=== PATIENT | male | born 1985 | race Caucasian/White ===

== ENCOUNTER 2019-07-22 09:21 | Emergency (ER) | payer OTHER ==
[~2019-07-22] VITALS: Ht 177.8 cm; Wt 142.0 kg
[2019-07-22 09:50] LABS: BASO # 0.1 10^3/uL (0.0-0.2); EOS # 0.2 10^3/uL (0.0-0.5); EOS % 1.7 % (0.0-3.0); HEMATOCRIT 45.1 % (42.0-52.0); HEMOGLOBIN 15.5 g/dl (13.5-17.5); LYMPH # 2.9 10^3/uL (1.5-5.0); LYMPH % 30.8 % (24.0-44.0); MEAN CORPUSCULAR HEMOGLOBIN 31.2 pg (27.0-33.0); MEAN CORPUSCULAR HGB CONC 34.4 g/dl (32.0-36.5); MEAN CORPUSCULAR VOLUME 90.7 fl (80.0-96.0); MONO # 0.7 10^3/uL (0.0-0.8); NEUTROPHILS # 5.4 10^3/uL (1.5-8.5); NEUTROPHILS % 57.9 % (36.0-66.0); PLATELET COUNT, AUTOMATED 289 10^3/uL (150-450); RED BLOOD COUNT 4.97 10^6/uL (4.30-6.10); WHITE BLOOD COUNT 9.3 10^3/uL (4.0-10.0)
--- NOTE | 2019-07-22 10:00 | REP ---
Portable chest, 09:40 a.m., single AP view with the the patient sitting: Comparison is the PA and lateral chest of 02/25/2018. The lung noguera are clear. The cardiac size is normal. The fay, mediastinum, and skeletal structures are unremarkable. Impression: Negative portable chest. There is no interval change. Electronically Signed by Ashok Lerma MD 07/22/2019 09:52 A
[2019-07-22 11:05] LABS: BLOOD UREA NITROGEN 12 MG/DL (7-18); CALCIUM LEVEL 8.8 MG/DL (8.5-10.1); CARBON DIOXIDE LEVEL 26 MEQ/L (21-32); CHLORIDE LEVEL 106 MEQ/L (98-107); CK-MB VALUE MASS 1.7 NG/ML (<3.6); CPK CREATINE PHOSPHOKINASE 152 U/L (39-308); CREATININE FOR GFR 1.14 MG/DL (0.70-1.30); GLOMERULAR FILTRATION RATE > 60.0 (>60); GLUCOSE, FASTING 102 MG/DL (70-100); MB/CK RELATIVE INDEX 1.12 (< OR =4); SODIUM LEVEL 139 MEQ/L (136-145); TROPONIN I < 0.02 NG/ML (< 0.10)
[2019-07-22] MEDS ORDERED: ISOVUE-370 76% 100ML VIAL (Q9967) As Ordered ONE ×2 (11:18→11:58)
--- NOTE | 2019-07-22 12:29 | REP ---
CT of the chest with IV contrast, CT pulmonary artery angiography: Comparison is the portable plain film study earlier today. The pulmonary arteries are marginally well opacified. The thoracic aorta is more densely opacified and the pulmonary arteries. There are no emboli in the pulmonary trunk or central pulmonary arteries. There are no emboli in the pulmonary lobe or segment branches. There are no infiltrates or pleural effusions. There are no lung masses or nodules. There is no mediastinal or hilar lymph node enlargement. There is no axillary lymph node enlargement. The thoracic aorta is unremarkable. Cardiac size is normal. There is no pericardial effusion. The visualized upper abdominal contents are unremarkable. Impression: No pulmonary emboli are identified. There are no infiltrates, pleural effusions, masses, nodules or adenopathy. Otherwise, negative CT study of the chest. Electronically Signed by Ashok Lerma MD 07/22/2019 12:20 P
[2019-07-22 14:13] VITALS: BP 115/59
[2019-07-22 14:20] LABS: CK-MB VALUE MASS < 1.0 NG/ML (<3.6); CPK CREATINE PHOSPHOKINASE 111 U/L (39-308); TROPONIN I < 0.02 NG/ML (< 0.10)
--- NOTE | 2019-07-23 20:43 | ECGEPIP ---
[facility] - ED Test Date: 2019-07-22 Pat Name: WESLY JONES Department: Room: - Gender: Male [employer] Photographer: julio césar : 1985 Requested By: Arnoldo Alejandro Order Number: [id number] Reading MD: Rosalie Deng Measurements Intervals [place] Rate: 81 P: 31 MN: 144 QRS: 40 QRSD: 105 T: 21 QT: 356 QTc: 414 Interpretive Statements SINUS RHYTHM POSSIBLE INFERIOR MYOCARDIAL INFARCTION, OF INDETERMINATE AGE WITH POSTERIOR EXTENSION NO PRIOR Electronically Signed on 07-23-2019 20:43:10 EDT by Rosalie Deng
== END 2019-07-22 14:55 | disposition home or self-care (01) ==
LOC: M ED 09:21
DX: R07.89 Other chest pain (principal); R07.1 Chest pain on breathing; E66.9 Obesity, unspecified
CPT/HCPCS: 36415; 71045; 71275; 80048; 82550; 82553; 84484; 85025; 93005; 93041; 94760; 99285; Q9967

== ENCOUNTER 2020-08-25 20:31 | Emergency (ER) | payer OTHER ==
[~2020-08-25] VITALS: Ht 177.8 cm; Wt 134.1 kg
--- NOTE | 2020-08-25 21:34 | REPVR ---
PROCEDURE INFORMATION: Exam: XR Right Knee Exam date and time: 08/25/2020 9:07 PM Age: 35 years old Clinical indication: Pain; Knee; Right; Additional info: Injury with pain TECHNIQUE: Imaging protocol: XR Right knee. Views: 4 or more views. COMPARISON: No relevant prior studies available. FINDINGS: Bones/joints: Normal. Soft tissues: Normal. IMPRESSION: No acute findings. Electronically signed by: Lew Sheriff On 08/25/2020 21:34:51 PM
[2020-08-25 21:48] VITALS: BP 155/75
== END 2020-08-25 21:58 | disposition home or self-care (01) ==
LOC: M ED 20:31
DX: S83.91XA Sprain of unspecified site of right knee, initial encounter (principal); X50.1XXA Overexertion from prolonged static or awkward postures, initial encounter; Y92.89 Other specified places as the place of occurrence of the external cause; Y93.9 Activity, unspecified; Y99.0 Civilian activity done for income or pay

== ENCOUNTER → 2020-08-31 | Outpatient (CLI) | payer OTHER ==
--- NOTE | 2020-09-01 08:13 | REP ---
INDICATION: RT KNEE TRAUMA W/ PAIN ? DERANGEMENT ? LM TEAR. COMPARISON: Comparison knee radiographs August 25, 2020.. TECHNIQUE: Axial, coronal, and sagittal imaging planes utilized. T1, proton density, and T2 weighted scans are obtained in the usual fashion with without fat saturation. FINDINGS: Cortical and medullary bone signal intensity are normal. There is a small amount of joint fluid visible. No Grant's cyst is observed. There is mild soft tissue edema anterior to the distal segment of the patellar tendon. Extra-articular soft tissues are otherwise unremarkable. Patellar and quadriceps tendons are intact. Anterior and posterior cruciate ligaments are unremarkable. There is no evidence of medial or lateral collateral ligament disruption. No medial or lateral meniscal tear is appreciated. No evidence to suggest loose body. Articular cartilage signal intensity in the medial tibial plateau is subtly heterogeneous. This may reflect mild chondromalacia. Similar changes are noted in the lateral tibial plateau articular cartilage. Patellar and femoral trochlear cartilage are unremarkable. Medial and lateral patellar retinacular structures appear intact. IMPRESSION: Mild soft tissue swelling anterior to the distal patellar tendon. Minimal chondromalacia. Otherwise no evidence of intra-articular derangement. No evidence of occult fracture. Small amount of joint fluid. <Electronically signed by Milan Agustin > 09/01/20 [id number]
== END ==
LOC: M RAD 15:14
PROVIDERS: ATTEND Orthopaedic Surgery Sports Medicine
DX: M94.261 Chondromalacia, right knee (principal); M25.461 Effusion, right knee

== ENCOUNTER 2020-09-09 11:01 | Outpatient (RCR) | payer OTHER | END 2020-09-10 | LOC: M PT 11:01 | PROVIDERS: ATTEND Orthopaedic Surgery Sports Medicine | DX: M23.361 Other meniscus derangements, other lateral meniscus, right knee (principal) ==

== ENCOUNTER 2020-09-22 12:30 | Outpatient (RCR) | payer OTHER | END 2020-10-11 | LOC: M PT 12:30 | PROVIDERS: ATTEND Orthopaedic Surgery Sports Medicine | DX: M23.361 Other meniscus derangements, other lateral meniscus, right knee (principal) ==

== ENCOUNTER → 2021-05-22 | Outpatient (REF) | payer OTHER ==
[2021-05-22 20:40] LABS: RSV AMPLIFICATION NEGATIVE (NEGATIVE)
== END ==
LOC: M WUC 19:01
PROVIDERS: ATTEND Physician Assistant
DX: J06.9 Acute upper respiratory infection, unspecified (principal); R05.9 Cough, unspecified; Z20.828 Contact with and (suspected) exposure to other viral communicable diseases

== ENCOUNTER 2022-11-18 23:28 | Emergency (ER) | payer OTHER ==
[~2022-11-18] VITALS: Ht 177.8 cm; Wt 137.5 kg
[2022-11-19 02:05] LABS: BASO # 0.1 10^3/uL (0.0-0.2); BASO % 0.8 % (0.0-1.0); EOS # 0.2 10^3/uL (0.0-0.5); EOS % 1.7 % (0.0-3.0); HEMATOCRIT 40.7 % (42.0-52.0); LYMPH # 2.4 10^3/uL (1.5-5.0); LYMPH % 18.1 % (24.0-44.0); MEAN CORPUSCULAR HEMOGLOBIN 31.6 pg (27.0-33.0); MEAN CORPUSCULAR HGB CONC 34.4 g/dl (32.0-36.5); MEAN CORPUSCULAR VOLUME 91.9 fl (80.0-96.0); MONO # 0.8 10^3/uL (0.0-0.8); MONO % 6.3 % (2.0-8.0); NEUTROPHILS # 9.5 10^3/uL (1.5-8.5); NEUTROPHILS % 72.7 % (36.0-66.0); PLATELET COUNT, AUTOMATED 278 10^3/uL (150-450); RED BLOOD COUNT 4.43 10^6/uL (4.30-6.10); WHITE BLOOD COUNT 13.1 10^3/uL (4.0-10.0)
[2022-11-19 02:22] LABS: INR 1.02; PROTHROMBIN TIME 13.6 SECONDS (12.5-14.5)
[2022-11-19 02:32] LABS: LIPASE 27 U/L (12-53)
[2022-11-19 02:33] LABS: CPK CREATINE PHOSPHOKINASE 255 U/L (46-171)
[2022-11-19 02:34] LABS: ALKALINE PHOSPHATASE 75 U/L (46-116); ALT/SGPT 34 U/L (7.0-40); AST/SGOT 13 U/L (<34); BILIRUBIN,DIRECT < 0.1 MG/DL (<0.4); BILIRUBIN,TOTAL 0.3 MG/DL (0.3-1.2); BLOOD UREA NITROGEN 11 MG/DL (9-23); CALCIUM LEVEL 8.5 MG/DL (8.5-10.1); CARBON DIOXIDE LEVEL 27 MMOL/L (20-31); CHLORIDE LEVEL 103 MMOL/L (98-107); CK-MB VALUE MASS 1.4 NG/ML (<3.6); CREATININE FOR GFR 0.98 MG/DL (0.70-1.30); GLOMERULAR FILTRATION RATE > 60.0 (>60); GLUCOSE, FASTING 92 MG/DL (60-100); MB/CK RELATIVE INDEX 0.54 (< OR =4); POTASSIUM SERUM 3.4 MMOL/L (3.5-5.1); SODIUM LEVEL 137 MMOL/L (136-145); TOTAL PROTEIN 6.7 G/DL (5.7-8.2)
[2022-11-19] MEDS ORDERED: ASPIRIN 81MG CHEW TABLET PO ONE (02:55)
[2022-11-19] MEDS ORDERED: ISOVUE-370 76% 100ML VIAL As Ordered ONE (02:57)
[2022-11-19 03:56] LABS: CK-MB VALUE MASS 1.2 NG/ML (<3.6)
[2022-11-19 03:57] LABS: MB/CK RELATIVE INDEX 0.51 (< OR =4)
[2022-11-19] MEDS ORDERED: NAPR-837 PO (05:14)
[2022-11-19 05:30] VITALS: BP 134/61; TEMP 97.7; O2SAT 97
== END 2022-11-19 05:56 | disposition home or self-care (01) ==
LOC: M ED 23:28
DX: R07.89 Other chest pain (principal)
CPT/HCPCS: 71045; 71275; 80048; 80076; 82550; 82553; 83690; 84484; 85025; 85610; 93005; 93041; 94760; 99285; Q9967

== ENCOUNTER 2023-03-26 11:58 | Emergency (ER) | payer OTHER ==
[~2023-03-26] VITALS: Ht 180.3 cm; Wt 138.2 kg
[~2023-03-26 11:58] MED LIST: NAPR-837 PO
[2023-03-26] MEDS ORDERED: KETOROLAC 60MG 2ML VIAL IM ONE (16:50)
[2023-03-26] MEDS ORDERED: IBUP-1022 PO (16:53)
[2023-03-26] MEDS ORDERED: LIDO5DIS41 TOP (16:53)
[2023-03-26] MEDS ORDERED: METH-1164 PO (16:53)
[2023-03-26 17:09] VITALS: BP 142/86; TEMP 98.4; O2SAT 99
== END 2023-03-26 17:14 | disposition home or self-care (01) ==
LOC: M ED 11:58
DX: S16.1XXA Strain of muscle, fascia and tendon at neck level, initial encounter (principal); X50.0XXA Overexertion from strenuous movement or load, initial encounter; Y92.9 Unspecified place or not applicable; Y93.89 Activity, other specified; Y99.0 Civilian activity done for income or pay; Z79.891 Long term (current) use of opiate analgesic; Z79.899 Other long term (current) drug therapy
CPT/HCPCS: 72125; 96372; 99283; J1885

== ENCOUNTER → 2023-07-16 | Outpatient (CLI) | payer OTHER ==
[~2023-07-16] MED LIST changes: +IBUP-1022 PO; +LIDO5DIS41 TOP; +METH-1164 PO
== END ==
LOC: M SOG 07:53
PROVIDERS: ATTEND Physician Assistant
DX: M25.561 Pain in right knee (principal)

== ENCOUNTER → 2023-09-06 | Outpatient (CLI) | payer OTHER | LOC: M RAD 07:34 | PROVIDERS: ATTEND Physician Assistant | DX: M25.561 Pain in right knee (principal); M23.041 Cystic meniscus, anterior horn of lateral meniscus, right knee ==

== ENCOUNTER → 2024-03-04 | Outpatient (CLI) | payer OTHER | LOC: M RAD 14:27 | PROVIDERS: ATTEND Orthopaedic Surgery Hand Surgery | DX: M25.469 Effusion, unspecified knee (principal); M67.50 Plica syndrome, unspecified knee ==

== ENCOUNTER 2024-04-16 06:02 | Day surgery (SDC) | payer OTHER ==
[~2024-04-16] VITALS: Ht 180.3 cm; Wt 142.9 kg
[~2024-04-16 06:02] MED LIST changes: +NAPR-885 PO
[2024-04-16] MEDS ORDERED: ONDANSETRON 4MG 2ML VIAL As Ordered ONE (07:03)
[2024-04-16] MEDS ORDERED: ACETAMINOPHEN 1000MG/100ML IV BAG As Ordered ONE (07:03)
[2024-04-16] MEDS ORDERED: LIDOCAINE 2% INJ 100 MG/5 ML SYRINGE As Ordered ONE (07:03)
[2024-04-16] MEDS ORDERED: propofoL 200 MG/20 ML VIAL As Ordered ONE (07:03)
[2024-04-16] MEDS ORDERED: fentaNYL 100 MCG/2 ML INJECTION As Ordered ONE (07:03)
[2024-04-16] MEDS ORDERED: dexmedeTOMIDine (4MCG/ML)200MCG/50ML BTL (PRECEDEX) As Ordered ONE (07:03)
[2024-04-16] MEDS ORDERED: MIDAZOLAM INJ 2MG/2ML VIAL As Ordered ONE (07:03)
[2024-04-16] MEDS ORDERED: LIDOCAINE 2% 100MG/5ML SDV (FOR ANES.) As Ordered ONE (07:10)
[2024-04-16] MEDS: EPINEPHrine INJ 1 MG/ML 1ML AMP As Ordered ONE (07:57)
[2024-04-16] MEDS ORDERED: ROCURONIUM BROMIDE 50MG/5ML VIAL As Ordered ONE (07:58)
[2024-04-16] MEDS: ceFAZolin 1GM VIAL As Ordered ONE (08:15)
[2024-04-16] MEDS: ceFAZolin 2 GM/D5W 50 ML IV BAG As Ordered ONE (08:15)
[2024-04-16] MEDS: TRANEXAMIC ACID 100 MG/ML 10ML VIAL As Ordered ONE (08:20)
[2024-04-16] MEDS ORDERED: SUGAMMADEX SODIUM 500 MG/5 ML VIAL (BRIDION) As Ordered ONE (09:25)
[2024-04-16] MEDS ORDERED: KETOROLAC 60MG 2ML VIAL As Ordered ONE (09:27)
[2024-04-16] MEDS ORDERED: ONDANSETRON 4MG 2ML VIAL IV PRN (09:50)
[2024-04-16] MEDS ORDERED: fentaNYL 100 MCG/2 ML INJECTION IV PRN (09:50)
[2024-04-16] MEDS ORDERED: PERCOCET PO (10:14)
[2024-04-16] MEDS: oxyCODONE 5MG TAB PO PRN (10:26)
[2024-04-16 11:42] VITALS: BP 133/72; TEMP 97.7; O2SAT 96
== END 2024-04-16 11:48 | disposition home or self-care (01) ==
LOC: M SDC 06:02
PROVIDERS: ATTEND Orthopaedic Surgery Hand Surgery
DX: M23.000 Cystic meniscus, unspecified lateral meniscus, right knee (principal); M25.561 Pain in right knee; S80.01XD Contusion of right knee, subsequent encounter
CPT/HCPCS: 29877; 88304; C9290; J0131; J0171; J0665; J0690; J1100; J1885; J2250; J2405; J3010

== ENCOUNTER → 2024-11-25 | Outpatient (CLI) | payer OTHER ==
[~2024-11-25] MED LIST changes: +LIDO1ADH93 TOP; -LIDO5DIS41 TOP; +PERCOCET PO
== END ==
LOC: M SOG 09:30
PROVIDERS: ATTEND Physician Assistant
DX: M54.50 Low back pain, unspecified (principal)

== ENCOUNTER → 2024-11-28 | Outpatient (CLI) | payer OTHER | LOC: M RAD 12:44 | PROVIDERS: ATTEND Physician Assistant | DX: M51.16 Intervertebral disc disorders with radiculopathy, lumbar region (principal); M47.817 Spondylosis without myelopathy or radiculopathy, lumbosacral region ==